=== PATIENT | female | born 1995 ===

== ENCOUNTER 2017-02-14 21:21 | Observation (INO) ==
[2017-02-15] MEDS ORDERED: BISACODYL 10 MG SUPP RECTAL PRN (00:52)
[2017-02-15] MEDS ORDERED: MAGNESIUM HYDROXIDE SUSP 30 ML UDCUP PO PRN (00:52)
[2017-02-15] MEDS ORDERED: OXYTOCIN/LR 20 UNIT/1,000 ML BAG IV ONE ×2 (00:52→09:24)
[2017-02-15] MEDS ORDERED: DEXTROSE 50% 25 GM/50 ML VIAL IV PRN (00:52)
[2017-02-15] MEDS ORDERED: ONDANSETRON 4 MG/2 ML VIAL IV PRN (00:52)
[2017-02-15] MEDS ORDERED: GLUCAGON 1 MG VIAL IM PRN (00:52)
[2017-02-15] MEDS ORDERED: ACETAMINOPHEN 325 MG TABLET PO PRN (00:52)
[2017-02-15] MEDS ORDERED: IBUPROFEN 800 MG TABLET PO PRN (00:52)
[2017-02-15] MEDS ORDERED: INFLUENZA VIRUS VACCINE 0.5 ML SYRINGE IM ONE (02:08)
[2017-02-15] MEDS: INSULIN REGULAR 100 UNIT/ML SUBCUT SCH ×3 (05:57→18:11)
[2017-02-15] MEDS: DOCUSATE SODIUM 100 MG CAPSULE PO SCH ×2 (11:58→20:43)
[2017-02-16] MEDS: INSULIN REGULAR 100 UNIT/ML SUBCUT SCH ×2 (00:06→06:21)
[2017-02-16 07:48] VITALS: BP 134/67
== END 2017-02-16 11:40 | disposition home or self-care (01) ==
LOC: N.ED 21:21 → INTOOBSV 23:58 → N.EDINP 02-15 → N.OB 02-15 00:26
PROVIDERS: ADMIT Obstetrics & Gynecology; ATTEND Obstetrics & Gynecology

== ENCOUNTER 2018-11-01 06:03 | Inpatient (IN) ==
[2018-11-01] MEDS ORDERED: CITRIC ACID/SODIUM CITRATE 30 ML UDCUP PO ONE ×2 (07:50→09:32)
[2018-11-01] MEDS ORDERED: ceFAZolin 3,000 MG in SYRINGE 1 EACH IV ONE ×2 (07:50→09:32)
[2018-11-01] MEDS ORDERED: FAMOTIDINE 20 MG/2 ML VIAL IV ONE ×2 (07:50→09:32)
[2018-11-01] MEDS ORDERED: OXYTOCIN/LR 30 UNIT/1,000 ML BAG IV ONE ×2 (07:52→09:34)
[2018-11-01] MEDS ORDERED: OXYTOCIN 10 UNIT/ML VIAL IM ONE ×2 (07:52→09:34)
[2018-11-01 08:06] LABS: Basophils % 0.3 % (0.0-0.8); Eosinophils % 0.3 % (0.00-10.9); Hematocrit 34.9 VOL% (35.7-47.0); Hemoglobin 11.3 GM/DL (12.0-16.0); Immature Granulocytes % 0.6 %; Immature Granulocytes Absolute 0.05 #; Lymphocytes # 1.3 10*3/uL (1.4-4.0); Lymphocytes % 16.2 % (21.3-54.2); Mean Corpuscular HGB Conc 32.4 GM/DL (32-36); Mean Corpuscular Volume 82.7 FL (87-102); Mean Platelet Volume 12.7 FL (9.6-12.0); Monocytes % 6.9 % (1.7-12.7); Neutrophils % 75.7 % (38.7-73.9); Platelet Count 99 T/CUMM (130-400); Red Blood Count 4.22 MC/CUMM (3.8-5.5); Red Cell Distribution Width 12.5 % (9.3-17.3); White Blood Count 7.7 T/CUMM (4-12)
[2018-11-01 08:15] LABS: INR 0.9; PT Patient Result 9.3 SECS; Partial Thromboplastin Time 26.2 SECS (0-40)
[2018-11-01 08:20] LABS: Albumin 2.2 G/DL (3.4-5.0); Bilirubin,Total 0.4 MG/DL (0.2-1.0); Calcium 8.4 MG/DL (8.5-10.1); Osmolality,Calculated 274.7 MOS/KG (273-304); Total Protein 6.3 G/DL (6.4-8.3)
[2018-11-01 08:24] LABS: Hypochromasia 1+; Platelet Estimate Decreased
[2018-11-01] MEDS ORDERED: miSOPROStol 200 MCG TABLET ONE (09:11)
[2018-11-01] MEDS ORDERED: OXYTOCIN/LR 20 UNIT/1,000 ML BAG IV ONE ×2 (09:12→10:13)
[2018-11-01] MEDS ORDERED: TRANEXAMIC ACID 1,000 MG/10 ML VIAL ONE (09:12)
[2018-11-01] MEDS ORDERED: CARBOPROST TROMETHAMINE 250 MCG/ML AMP IM ONE (09:12)
[2018-11-01 09:23] LABS: HIV Antigen/Antibody Result Nonreactive (Nonreactive); Hepatitis B Surface Ag Quant 0.18 Index; Hepatitis B Surface Ag Result Negative (Negative)
[2018-11-01] MEDS: LACTATED RINGERS 1,000 ML IV SCH ×2 (09:45→09:46)
[2018-11-01] MEDS ORDERED: LACTATED RINGERS 1,000 ML IV SCH ×2 (10:00→10:30)
[2018-11-01 10:10] LABS: Cord Arterial Blood HCO3 18.9 MMOL/L
[2018-11-01 10:11] LABS: Cord Venous Blood HCO3 22.4 MMOL/L; Cord Venous Blood PCO2 41.2 MMHG
[2018-11-01] MEDS ORDERED: RHO(D) IMMUNE GLOBULIN 300 MCG SYRINGE IM ONE (10:13)
[2018-11-01] MEDS ORDERED: ONDANSETRON 4 MG/2 ML VIAL IV PRN (10:13)
[2018-11-01] MEDS ORDERED: ACETAMINOPHEN 325 MG TABLET PO PRN (10:13)
[2018-11-01] MEDS ORDERED: IBUPROFEN 800 MG TABLET PO PRN (10:13)
[2018-11-01] MEDS ORDERED: fentaNYL 100 MCG/2 ML VIAL ONE (10:32)
[2018-11-01] MEDS ORDERED: MORPHINE 10 MG/10 ML VIAL ONE (10:33)
[2018-11-01 10:36] LABS: Apearance,Urine CLEAR (Clear); Bacteria,Urine Occasional /HPF (Few); Bilirubin,Urine Negative (Negative); Blood, Urine Negative (Negative); Glucose,Urine (UA) Negative (Negative); Hyaline Casts,Urine 2 /LPF (0-3); Ketones,Urine Negative (Negative); Mucus,Urine Many /LPF (Occasional); Nitrite,Urine Negative (Negative); Protein,Urine 100 MG/DL; RBC,Urine 1 /HPF (0-4); Squamous Epithelial Cell,Urine Occasional /HPF (0-10); Urine Color Yellow (Yellow); Urine Specific Gravity 1.021 (1.001-1.035); Urine Urobilinogen < 2.0 EU/DL (0.2-1.0); WBC,Urine 1 /HPF (0-6)
[2018-11-01] MEDS ORDERED: MIDAZOLAM 2 MG/2 ML VIAL ONE (10:36)
[2018-11-01] MEDS ORDERED: BUPIVACAINE SPINAL 0.75% 2 ML AMP SPINAL ONE (10:37)
[2018-11-01] MEDS ORDERED: BUPIVACAINE 0.5% 50 ML VIAL ONE (10:51)
[2018-11-01] MEDS ORDERED: hydrALAZINE 20 MG/1 ML VIAL IV ONE ×3 (12:29→16:45)
[2018-11-01] MEDS ORDERED: GLUCAGON 1 MG VIAL IM PRN (16:46)
[2018-11-01] MEDS ORDERED: DEXTROSE 50% 25 GM/50 ML VIAL IV PRN (16:46)
[2018-11-01] MEDS: ceFAZolin 1,000 MG in SYRINGE 1 EACH IV SCH (18:06)
[2018-11-01 20:18] LABS: Basophils % 0.1 % (0.0-0.8); Hematocrit 30.6 VOL% (35.7-47.0); Hemoglobin 10.3 GM/DL (12.0-16.0); Immature Granulocytes % 0.4 %; Immature Granulocytes Absolute 0.03 #; Lymphocytes % 14.4 % (21.3-54.2); Mean Corpuscular HGB Conc 33.7 GM/DL (32-36); Mean Corpuscular Volume 82.3 FL (87-102); Mean Platelet Volume 12.6 FL (9.6-12.0); Monocytes % 5.3 % (1.7-12.7); Neutrophils % 79.8 % (38.7-73.9); Platelet Count 89 T/CUMM (130-400); Red Blood Count 3.72 MC/CUMM (3.8-5.5); Red Cell Distribution Width 12.6 % (9.3-17.3)
[2018-11-01 20:40] LABS: Platelet Estimate Decreased
[2018-11-01] MEDS: DOCUSATE SODIUM 100 MG CAPSULE PO SCH (22:39)
[2018-11-01] MEDS ORDERED: diphenhydrAMINE 50 MG/1 ML VIAL IV PRN (23:12)
[2018-11-01] MEDS: INSULIN REGULAR 100 UNIT/ML SUBCUT SCH ×2 (23:43→23:44)
[2018-11-02] MEDS: ceFAZolin 1,000 MG in SYRINGE 1 EACH IV SCH (01:34)
[2018-11-02 06:04] LABS: Basophils % 0.2 % (0.0-0.8); Eosinophils % 0.3 % (0.00-10.9); Hematocrit 34.4 VOL% (35.7-47.0); Immature Granulocytes % 0.3 %; Immature Granulocytes Absolute 0.02 #; Lymphocytes # 1.2 10*3/uL (1.4-4.0); Mean Corpuscular Volume 83.7 FL (87-102); Mean Platelet Volume 11.6 FL (9.6-12.0); Neutrophils % 73.2 % (38.7-73.9); Red Blood Count 4.11 MC/CUMM (3.8-5.5); Red Cell Distribution Width 12.8 % (9.3-17.3); White Blood Count 6.3 T/CUMM (4-12)
[2018-11-02 06:05] LABS: Platelet Count 101 T/CUMM (130-400)
[2018-11-02] MEDS: INSULIN REGULAR 100 UNIT/ML SUBCUT SCH ×3 (06:21→21:03)
[2018-11-02 06:40] LABS: Hypochromasia 1+; Platelet Estimate Decreased
[2018-11-02] MEDS ORDERED: MULTIVITAMIN (PRENATAL) TABLET PO SCH (09:00)
[2018-11-02] MEDS: MAGNESIUM HYDROXIDE SUSP 30 ML UDCUP PO PRN ×2 (10:15→21:02)
[2018-11-02] MEDS: SIMETHICONE CHEW 80 MG TABLET PO PRN ×2 (10:16→21:02)
[2018-11-02] MEDS: METOCLOPRAMIDE 10 MG TABLET PO SCH ×2 (10:16→16:30)
[2018-11-02] MEDS: DOCUSATE SODIUM 100 MG CAPSULE PO SCH ×2 (10:16→21:02)
[2018-11-02] MEDS ORDERED: GLUCAGON 1 MG VIAL IM PRN (20:58)
[2018-11-02] MEDS ORDERED: DEXTROSE 50% 25 GM/50 ML VIAL IV PRN (20:58)
[2018-11-03] MEDS: METOCLOPRAMIDE 10 MG TABLET PO SCH ×2 (00:12→08:00)
[2018-11-03] MEDS: INSULIN REGULAR 100 UNIT/ML SUBCUT SCH (07:31)
[2018-11-03] MEDS: DOCUSATE SODIUM 100 MG CAPSULE PO SCH (08:00)
[2018-11-03 08:03] VITALS: BP 129/74
[2018-11-03] MEDS ORDERED: DIPH/TET/ACEL PERT BOOSTER VACCINE 0.5 ML VIAL IM ONE (13:08)
== END 2018-11-03 13:40 | disposition home or self-care (01) | DRG 788 ==
LOC: N.ED 06:03 → N.LD 06:50 → N.ED 06:50 → N.LD 07:24 → EDSTATUS 08:12 → N.OB 14:38
PROVIDERS: ADMIT Obstetrics & Gynecology; ATTEND Obstetrics & Gynecology
PROC: LDCSECT (ICD-10-PCS; 2018-11-01 09:00)